=== PATIENT | male | born 1955 | race African-American/Black ===

== ENCOUNTER → 2021-01-10 | Outpatient (CLI) | payer OTHER ==
[2015-03-22 18:38] VITALS: BP 120/72
[~2021-01-10] MED LIST: AMLO-187 PO; ASPI-630 PO; IBUP200C PO; LISI1TAB20 PO; MULT-18 PO; OMEG500C PO; OXYC1TAB22 PO
--- NOTE | 2021-01-11 14:31 | KCIC ---
EXAM: AP, bilateral oblique, lateral, open odontoid views of the cervical spine DATE: 01/10/2021 4:01 PM CLINICAL HISTORY: WORSENING CERVICALGIA, SURGERY 25-30 YRS AGO, PAIN INTO RT SHOULDER, LROM COMPARISON: None available. FINDINGS: On the lateral view, the cervical spine is imaged from the skull base to anterior superior T1. Vertebral body heights are preserved. There is solid bony fusion of C4-C6. Trace anterolisthesis of C 3 on C4 and trace retrolisthesis of C6 on C7. Severe disc height loss and endplate signal changes at C6-7. Multilevel facet degenerative changes are seen. Straightening of the normal cervical lordosis. No spondylolisthesis. Oblique views demonstrate mild to moderate neural foraminal narrowing bilaterally. Normal predental space. No significant prevertebral soft tissue swelling. IMPRESSION: 1. Multilevel spondylosis as above 2. Negative acute fracture or subluxation. Electronically signed by: Kimo Terrell MD (01/11/2021 2:29 PM) [facility]
== END ==
LOC: KCIC 15:45
PROVIDERS: ATTEND Clinical Nurse Specialist Family Health
DX: M54.2 Cervicalgia (principal); M47.812 Spondylosis without myelopathy or radiculopathy, cervical region
CPT/HCPCS: 72050

== ENCOUNTER → 2021-04-01 | Outpatient (CLI) | payer OTHER ==
[2015-03-22 18:38] VITALS: BP 120/72
--- NOTE | 2021-04-01 12:25 | KCIC ---
Examination: MRI of the right shoulder without contrast HISTORY: History of right shoulder pain COMPARISON: None available TECHNIQUE: Multiplanar, multisequence MR imaging of the right shoulder performed without contrast. FINDINGS: The long head of the biceps tendon within the bicipital groove. The attachment of the long head the b iceps tendon to the superior labral anchor grossly appears intact. The attachment of subscapularis te ndon grossly appears intact. There is full-thickness tear of the supraspinatus tendon with tendon ret raction measuring 2.4 cm.There is probable full-thickness tear of the superior fibers of the infraspi natus tendon ,some of the inferior fibers of the infraspinatus tendon appear intact. There is extensi on of fluid from the shoulder joint and subacromial subdeltoid bursa. Moderate increased T2 signal id entified in the supraspinatus, infraspinatus tendons likely tendinosis. The acromion is type II. Ther e is muscle bulk loss identified in the supraspinatus, infraspinatus muscles. There is obscuration of fat in the rotator interval. There is increased signal identified in the superior labrum posteriorly likely tear with a small 4 mm cystic structure likely paralabral cyst extending superiorly posterior to the posterior superior lab rum. Moderate degenerative changes acromioclavicular joint, glenohumeral joint. IMPRESSION: 1. Full-thickness tear of the supraspinatus tendon with tendon retraction. There is probable full-thi ckness tear of the superior fibers of the infraspinatus tendon ,some of the inferior fibers of the in fraspinatus tendon appear intact. 2.. Tear of the posterior superior labrum with small 4 mm paralabral cyst extending posteriorly from the posterior superior labrum. 3. There is obscuration of fat in the rotator interval. Correlate for adhesive capsulitis. 4. Moderate degenerative changes acromioclavicular joint and glenohumeral joint. 5.. Moderate tendinosis of the rotator cuff.. Electronically signed by: Leno Johnson MD (04/01/2021 12:22 PM) [id number]
== END ==
LOC: KCIC MRI 09:22
PROVIDERS: ATTEND Pain Medicine Pain Medicine
DX: S43.491A Other sprain of right shoulder joint, initial encounter (principal); M19.011 Primary osteoarthritis, right shoulder; M75.121 Complete rotator cuff tear or rupture of right shoulder, not specified as traumatic; M25.811 Other specified joint disorders, right shoulder; M75.01 Adhesive capsulitis of right shoulder; X58.XXXA Exposure to other specified factors, initial encounter; Y93.89 Activity, other specified; Y92.89 Other specified places as the place of occurrence of the external cause; Y99.8 Other external cause status
CPT/HCPCS: 73221